=== PATIENT | male | born 2000 | race African-American/Black ===

== ENCOUNTER 2023-04-03 04:28 | Emergency (ER) | payer BC, OTHER ==
[2023-04-03 04:41] VITALS: BP 123/78; PULSE 62; RESP 16; TEMP 98.3; BMI 20.5
[2023-04-03 05:29] LABS: BASO % 0.8 % (0-2.0); EOS % 0.6 % (0-4.5); HEMATOCRIT 39.1 % (35.4-49); HEMOGLOBIN 13.5 GM/dL (11.7-16.9); LYMPH % 37.4 % (8-40); MCH 27.6 pg (25.7-33.7); MCHC 34.6 g/dl (32.0-35.9); MEAN CELL VOLUME 79.7 fl (80-96); MEAN PLT VOLUME 8.6 fl (7.5-11.1); NEUT % 52.2 % (42.8-82.8); PLATELET COUNT 296 10^3/uL (134-434); RBC 4.91 M/mm3 (4.00-5.60); RDW 14.3 % (11.9-15.9); WHITE BLOOD COUNT 7.7 K/mm3 (4.0-10.0)
[2023-04-03 05:44] LABS: POTASSIUM 3.6 mmol/L (3.5-5.1)
[2023-04-03 05:45] LABS: CALCIUM 8.6 mg/dL (8.5-10.1)
[2023-04-03 05:46] LABS: ALBUMIN 3.6 g/dl (3.4-5.0); BLOOD UREA NITROGEN 10.7 mg/dL (7-18)
[2023-04-03 05:49] LABS: CREATININE 0.9 mg/dL (0.55-1.3)
[2023-04-03 05:51] LABS: BILIRUBIN,TOTAL 0.6 mg/dL (0.2-1); TOT PROT 7.6 g/dl (6.4-8.2)
[2023-04-03] MEDS: KETOROLAC TROMETHAMINE 15 MG/ML VIAL IVPUSH ONE (06:42)
[2023-04-03] MEDS: CLINDAMYCIN HCL 300 MG CAPSULE PO ONE (06:42)
[2023-04-03] MEDS ORDERED: CLINDAMYCIN HCL 150 MG CAPSULE (FP) ONE (06:44)
[2023-04-03] MEDS ORDERED: KETOROLAC TROMETHAMINE 15 MG/ML VIAL ONE (06:44)
== END 2023-04-03 06:41 | disposition home or self-care (01) ==
LOC: JER 04:28
PROC: 3E0333Z Introduction of Anti-inflammatory into Peripheral Vein, Percutaneous Approach (ICD-10-PCS; principal; 2023-04-03)
DX: R22.0 Localized swelling, mass and lump, head (principal)
CPT/HCPCS: 36415; 70491-TC; 80053; 85025; 99285-25